=== PATIENT | female | born 1990 | race Two or more races ===

== ENCOUNTER 2023-04-03 16:24 | Emergency (ER) | payer OTHER ==
[2023-04-03 16:40] VITALS: BP 107/55; PULSE 76; RESP 16; TEMP 98.7; BMI 28.1
[2023-04-03] MEDS ORDERED: LIDOCAINE HCL/PF 1% SDV 5ML VIAL ONE (17:31)
[2023-04-03] MEDS ORDERED: SULFAMETHOXAZOLE/TRIMETHOPRIM 800MG/160MG D.S. TABLET PO ONE (18:23)
[2023-04-03] MEDS ORDERED: SULFAMETHOXAZOLE/TRIMETHOPRIM 800MG/160MG D.S. TABLET ONE (18:26)
== END 2023-04-03 18:37 | disposition home or self-care (01) ==
LOC: JERFT 16:24
PROC: 0U9MXZZ Drainage of Vulva, External Approach (ICD-10-PCS; principal; 2023-04-03)
DX: N75.1 Abscess of Bartholin's gland (principal); N76.89 Other specified inflammation of vagina and vulva; N94.819 Vulvodynia, unspecified
CPT/HCPCS: 99283-25

== ENCOUNTER 2023-05-03 00:02 | Emergency (ER) | payer OTHER ==
[2023-05-03 01:07] VITALS: BP 119/80; PULSE 71; RESP 16; TEMP 97.8
[2023-05-03] MEDS ORDERED: METOCLOPRAMIDE HCL INJECTION 10 MG/2 ML VIAL IVPUSH ONE (01:09)
[2023-05-03] MEDS ORDERED: FAMOTIDINE 20 MG/50 ML IVPB 20 MG/50 ML MG IVPB ONE ×2 (01:09→01:35)
[2023-05-03] MEDS ORDERED: SUCRALFATE 1 GM TABLET (FP) PO ONE (01:10)
[2023-05-03] MEDS ORDERED: SODIUM CHLORIDE 0.9% 500 ML INFUS.BAG IV ONE (01:26)
[2023-05-03] MEDS ORDERED: SUCRALFATE 1 GM TABLET (FP) ONE (01:35)
[2023-05-03] MEDS ORDERED: METOCLOPRAMIDE HCL INJECTION 10 MG/2 ML VIAL ONE (01:35)
[2023-05-03 02:11] LABS: BASO % 1.1 % (0-2.0); HEMATOCRIT 36.9 % (32.4-45.2); HEMOGLOBIN 12.6 GM/dL (10.7-15.3); LYMPH % 19.8 % (8-40); MCH 30.8 pg (25.7-33.7); MCHC 34.1 g/dl (32.0-36.0); MEAN CELL VOLUME 90.3 fl (80-96); MEAN PLT VOLUME 8.1 fl (7.5-11.1); MONO % 6.3 % (3.8-10.2); NEUT % 71.8 % (42.8-82.8); PLATELET COUNT 273 10^3/uL (134-434); RBC 4.08 M/mm3 (3.60-5.2); RDW 13.8 % (11.6-15.6); WHITE BLOOD COUNT 10.5 K/mm3 (4.0-10.0)
[2023-05-03 02:14] LABS: PH,URINE 6.5 (5.0-8.0); URINE APPEARANCE CLEAR; URINE BILIRUBIN NEGATIVE (NEGATIVE); URINE COLOR YELLOW; URINE GLUCOSE (UA) NEGATIVE (NEGATIVE); URINE KETONE NEGATIVE (NEGATIVE); URINE LEUK ESTERASE NEGATIVE (NEGATIVE); URINE NITRITE NEGATIVE (NEGATIVE); URINE PROTEIN NEGATIVE (NEGATIVE); URINE UROBILINOGEN 0.2 mg/dL (0.2-1.0)
[2023-05-03 02:16] LABS: HCG,QUALITATIVE URINE Negative
[2023-05-03 02:22] LABS: POTASSIUM 4.4 mmol/L (3.5-5.1)
[2023-05-03 02:24] LABS: ALBUMIN 3.8 g/dl (3.4-5.0); CALCIUM 8.3 mg/dL (8.5-10.1)
[2023-05-03 02:27] LABS: CREATININE 0.7 mg/dL (0.55-1.3)
[2023-05-03 02:29] LABS: BILIRUBIN,TOTAL 0.2 mg/dL (0.2-1); TOT PROT 6.7 g/dl (6.4-8.2)
== END 2023-05-03 05:03 | disposition home or self-care (01) ==
LOC: JER 00:02
PROC: 3E033GC Introduction of Other Therapeutic Substance into Peripheral Vein, Percutaneous Approach (ICD-10-PCS; principal; 2023-05-03)
PROC: 3E033GC Introduction of Other Therapeutic Substance into Peripheral Vein, Percutaneous Approach (ICD-10-PCS; 2023-05-03)
DX: R42 Dizziness and giddiness (principal); R11.2 Nausea with vomiting, unspecified; R19.7 Diarrhea, unspecified; R10.84 Generalized abdominal pain; T36.8X5A Adverse effect of other systemic antibiotics, initial encounter; Z20.822 Contact with and (suspected) exposure to COVID-19
CPT/HCPCS: 0241U-QW; 36415; 74177-TC; 80053; 81003; 83735; 84703; 85025; 87086; 87186; 93005; 93010; 99285-25; Q9967

== ENCOUNTER 2024-05-31 17:24 | Emergency (ER) | payer OTHER ==
[2024-05-31 17:33] VITALS: BP 128/82; PULSE 95; RESP 16; TEMP 98.9; BMI 26.6
[2024-05-31] MEDS ORDERED: KETOROLAC TROMETHAMINE 30 MG/1 ML VIAL ONE (18:07)
[2024-05-31] MEDS ORDERED: ACETAMINOPHEN INJECTION 100 ML ONE (18:07)
[2024-05-31] MEDS: KETOROLAC TROMETHAMINE 30 MG/1 ML VIAL IVPUSH ONE (18:13)
[2024-05-31] MEDS: SODIUM CHLORIDE 0.9% 500 ML INFUS.BAG IV ONE (18:13)
[2024-05-31] MEDS: ACETAMINOPHEN 1000 MG/100 ML BAG IVPB ONE (18:13)
== END 2024-05-31 19:52 | disposition home or self-care (01) ==
LOC: JERFT 17:24 → JER 17:24 → JERFT 19:52
PROC: 3E033NZ Introduction of Analgesics, Hypnotics, Sedatives into Peripheral Vein, Percutaneous Approach (ICD-10-PCS; principal; 2024-05-31)
PROC: 3E0333Z Introduction of Anti-inflammatory into Peripheral Vein, Percutaneous Approach (ICD-10-PCS; 2024-05-31)
DX: S06.0X0A Concussion without loss of consciousness, initial encounter (principal); Y04.0XXA Assault by unarmed brawl or fight, initial encounter
CPT/HCPCS: 70450-TC; 96374; 96375; 99284-25; J0131

== ENCOUNTER 2024-06-03 23:04 | Observation (INO) | payer OTHER ==
[2024-06-03 23:20] VITALS: BMI 26.6
[2024-06-04] MEDS ORDERED: MECLIZINE HCL 25 MG TABLET (FP) ONE (00:42)
[2024-06-04] MEDS ORDERED: METOCLOPRAMIDE HCL INJECTION 10 MG/2 ML VIAL ONE (00:42)
[2024-06-04] MEDS: MECLIZINE HCL 25 MG TABLET (FP) PO ONE (01:28)
[2024-06-04] MEDS: METOCLOPRAMIDE HCL INJECTION 10 MG/2 ML VIAL IVPB ONE (01:28)
[2024-06-04] MEDS: SODIUM CHLORIDE 0.9% 500 ML INFUS.BAG IV ONE (01:28)
[2024-06-04 01:37] LABS: BASO % 0.2 % (0-2.0); EOS % 0.1 % (0-4.5); MCHC 33.3 g/dl (32.0-36.0); MEAN CELL VOLUME 90.1 fl (80-96); MEAN PLT VOLUME 8.2 fl (7.5-11.1); MONO % 5.2 % (3.8-10.2); NEUT % 86.5 % (42.8-82.8); PLATELET COUNT 299 10^3/uL (134-434); RBC 4.66 M/mm3 (3.60-5.2); RDW 12.8 % (11.6-15.6); WHITE BLOOD COUNT 12.7 K/mm3 (4.0-10.0)
[2024-06-04 01:50] LABS: INR 1.11 (0.83-1.09); PROTHROMBIN TIME (PATIENT) 12.5 SEC (9.7-13.0)
[2024-06-04 01:53] LABS: ACTIVATED PTT 31.7 SECONDS (25.2-36.5)
[2024-06-04 01:59] LABS: POTASSIUM 3.7 mmol/L (3.5-5.1)
[2024-06-04 02:01] LABS: CALCIUM 9.5 mg/dL (8.5-10.1)
[2024-06-04 02:02] LABS: ALBUMIN 4.3 g/dl (3.4-5.0); BLOOD UREA NITROGEN 9.8 mg/dL (7-18); MAGNESIUM 1.9 mg/dL (1.8-2.4)
[2024-06-04 02:05] LABS: CREATININE 0.8 mg/dL (0.55-1.3)
[2024-06-04 02:07] LABS: BILIRUBIN,TOTAL 0.3 mg/dL (0.2-1); TOT PROT 7.6 g/dl (6.4-8.2)
[2024-06-04] MEDS ORDERED: PIPERACILLIN/TAZOB 3.375 GM 3.375 GM in DEXTROSE 5%-WATER - 50 ML IVPB SCH (06:00)
[2024-06-04 07:38] LABS: HEMATOCRIT 36.9 % (32.4-45.2); HEMOGLOBIN 12.1 GM/dL (10.7-15.3); MCHC 32.8 g/dl (32.0-36.0); MEAN CELL VOLUME 91.5 fl (80-96); MEAN PLT VOLUME 8.9 fl (7.5-11.1); PLATELET COUNT 260 10^3/uL (134-434); RBC 4.04 M/mm3 (3.60-5.2); RDW 12.7 % (11.6-15.6)
[2024-06-04 07:49] LABS: CHOLESTEROL 128 mg/dL (50-200); LDL CHOLESTEROL (ONLY SJRH) 83 mg/dL (5-100)
[2024-06-04 07:51] LABS: HDL CHOLESTEROL 39 mg/dL (40-60)
[2024-06-04 07:53] LABS: CALCIUM 8.3 mg/dL (8.5-10.1)
[2024-06-04 07:54] LABS: BLOOD UREA NITROGEN 10.6 mg/dL (7-18); MAGNESIUM 1.7 mg/dL (1.8-2.4)
[2024-06-04 07:56] LABS: CREATININE 0.7 mg/dL (0.55-1.3)
[2024-06-04 07:57] LABS: PHOSPHOROUS 4.2 mg/dL (2.5-4.9)
[2024-06-04 07:58] LABS: BILIRUBIN,TOTAL 0.4 mg/dL (0.2-1); TOT PROT 5.9 g/dl (6.4-8.2)
[2024-06-04 08:07] VITALS: TEMP 98.2
[2024-06-04 08:36] LABS: ALBUMIN 3.2 g/dl (3.4-5.0)
[2024-06-04] MEDS: LACTATED RINGERS SOLUTION 1,000 ML/1,000 ML INFUS.BAG IV SCH (09:37)
[2024-06-04] MEDS: ENOXAPARIN NA (PORCINE) 40 MG/0.4 ML DISP.SYRIN SQ SCH (09:38)
[2024-06-04] MEDS: GABAPENTIN 400 MG CAPSULE PO SCH (09:38)
[2024-06-04] MEDS: MAGNESIUM 1GM/D5W - 1 GM/100 ML IVPB IVPB ONE (10:24)
[2024-06-04 10:49] LABS: EPI CELLS 7 /uL (0-25.1); HYALINE CASTS 0 /uL (0-3.1); URINE APPEARANCE CLEAR; URINE BACTERIA 78 /uL (0-1359); URINE BILIRUBIN NEGATIVE (NEGATIVE); URINE COLOR YELLOW; URINE GLUCOSE (UA) NEGATIVE (NEGATIVE); URINE KETONE NEGATIVE (NEGATIVE); URINE LEUK ESTERASE TRACE (NEGATIVE); URINE NITRITE NEGATIVE (NEGATIVE); URINE PROTEIN NEGATIVE (NEGATIVE); URINE RBC 26 /uL (0-23.9); URINE WBC 9 /uL (0-25.8)
[2024-06-04 11:06] LABS: COCAINE, UR NEGATIVE (NEGATIVE); METHADONE, UR NEGATIVE (NEGATIVE); OPIATES, URI NEGATIVE (NEGATIVE); URINE AMPHETAMINES NEGATIVE (NEGATIVE); URINE BARBITURATES NEGATIVE (NEGATIVE); URINE BENZODIAZEPINES NEGATIVE (NEGATIVE)
[2024-06-04 11:07] LABS: PHENCYCLIDINE,URINE NEGATIVE (NEGATIVE)
[2024-06-04 13:20] LABS: HIV INTERPRETATION NEGATIVE (NEGATIVE)
[2024-06-04] MEDS ORDERED: HYDROCORTISONE 2.5% LOTION - 1 BOTTLE TP PRN (14:45)
[2024-06-04 15:14] VITALS: BP 118/76; PULSE 78; RESP 18
== END 2024-06-04 16:19 | disposition home or self-care (01) ==
LOC: JER 23:04 → UNDOADMOB 06-04 03:42 → JERBED 06-04 03:42 → OBSVTOIN 06-04 04:15 → INTOOBSV 06-04 04:15 → J4W 06-04 07:18 → JERBED 06-04 07:18 → J4W 06-04 09:30
PROVIDERS: ADMIT Internal Medicine; ATTEND Internal Medicine
PROC: 3E033GC Introduction of Other Therapeutic Substance into Peripheral Vein, Percutaneous Approach (ICD-10-PCS; principal; 2024-06-04)
PROC: 3E0337Z Introduction of Electrolytic and Water Balance Substance into Peripheral Vein, Percutaneous Approach (ICD-10-PCS; 2024-06-04)
DX: R55 Syncope and collapse (principal); F41.9 Anxiety disorder, unspecified; F12.90 Cannabis use, unspecified, uncomplicated; R26.2 Difficulty in walking, not elsewhere classified; D72.829 Elevated white blood cell count, unspecified; Z90.49 Acquired absence of other specified parts of digestive tract; F17.290 Nicotine dependence, other tobacco product, uncomplicated; Z29.89 Encounter for other specified prophylactic measures
CPT/HCPCS: 0241U-QW; 36415; 70450-TC; 70551-TC; 72125-TC; 80053; 80061; 80307; 81003; 83735; 84100; 84436; 84439; 84443; 84484; 84703; 85025; 85027; 85610; 85730; 86803; 86850; 86900; 86901; 87077; 87086; 87389; 93005; 93010; 96361; 96365; 96375; 99285-25; G0378

== ENCOUNTER 2024-07-01 15:51 | Emergency (ER) | payer OTHER ==
[2024-07-01 16:23] VITALS: RESP 18; BMI 27.3
[2024-07-01] MEDS ORDERED: FLUORESCEIN NA 1 EA STRIP ONE (17:20)
[2024-07-01] MEDS ORDERED: TETRACAINE 0.5% OPHTH SOLN 2 ML BOTTLE ONE (17:21)
[2024-07-01] MEDS: FLUORESCEIN NA 1 EA STRIP OD ONE (17:22)
[2024-07-01] MEDS: TETRACAINE 0.5% OPHTH SOLN 2 ML BOTTLE OD ONE (17:22)
[2024-07-01 20:58] VITALS: BP 136/78; PULSE 76; TEMP 98
== END 2024-07-01 20:58 | disposition short-term general hospital (02) ==
LOC: JER 15:51
DX: H33.052 Total retinal detachment, left eye (principal); Z20.822 Contact with and (suspected) exposure to COVID-19
CPT/HCPCS: 0241U-QW; 99285-25